=== PATIENT | male | born 2000 | race Caucasian/White ===

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

== ENCOUNTER → 2024-02-13 | Outpatient (CLI) | payer OTHER | LOC: RAD 12:13 | DX: M79.641 Pain in right hand (principal) ==